=== PATIENT | male | born 1965 | race African-American/Black ===

== ENCOUNTER 2016-11-24 10:29 | Emergency (ER) | payer SELFPAY ==
[~2016-11-24] VITALS: Ht 180.3 cm; Wt 88.5 kg
--- NOTE | 2016-11-24 11:30 | RAD ---
Chest, 2 views, 11/24/2016: History: Cough The heart size and pulmonary vascularity are normal. There is a 2.5 cm calcified nodule in the lingula on the left, well demonstrated on the 03/06/2013 CT study. 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 No pulmonary infiltrate is seen. There is no evidence of pleural fluid. Mild spurring is present in the spine. IMPRESSION: No acute cardiopulmonary abnormality is detected.
--- NOTE | 2016-11-24 11:31 | PHYS DOC ---
Past Medical History Past Medical History: Diabetes-Type II, Hypertension Past Surgical History: No Surgical History Alcohol Use: None Drug Use: None Adult General Chief Complaint Chief Complaint: MULTIPLE COMPLAINTS HPI HPI Patient is a 51 year old male with history of hypertension, diabetes type 2, who presents today with a productive cough with yellow sputum for 3-4 days. Patient is also complaining of bilateral ear pain. Patient denies any fever. He states he has history of granuloma in his lungs. PCP Dr. Goyal Review of Systems Review of Systems Constitutional: Denies fever or chills [] Eyes: Denies change in visual acuity, redness, or eye pain [] HENT: Denies nasal congestion or sore throat [] Respiratory: Denies cough or shortness of breath [] Cardiovascular: No additional information not addressed in HPI [] GI: Denies abdominal pain, nausea, vomiting, bloody stools or diarrhea [] : Denies dysuria or hematuria [] Musculoskeletal: Denies back pain or joint pain [] Integument: Denies rash or skin lesions [] Neurologic: Denies headache, focal weakness or sensory changes [] Endocrine: Denies polyuria or polydipsia [] Allergies Allergies Allergies Coded Allergies Type Severity Reaction Last Updated Verified No Known Drug Allergies 05/25/15 No Physical Exam Physical Exam Constitutional: Well developed, well nourished, no acute distress, non-toxic appearance. [] HENT: Normocephalic, atraumatic, bilateral external ears normal, oropharynx moist, no oral exudates, nose normal. [] Eyes: PERRLA, EOMI, conjunctiva normal, no discharge. [] Neck: Normal range of motion, no tenderness, supple, no stridor. [] Cardiovascular:Heart rate regular rhythm, no murmur [] Lungs & Thorax: Bilateral breath sounds clear to auscultation [] Abdomen: Bowel sounds normal, soft, no tenderness, no masses, no pulsatile masses. [] Skin: Warm, dry, no erythema, no rash. [] Back: No tenderness, no CVA tenderness. [] Extremities: No tenderness, no cyanosis, no clubbing, ROM intact, no edema. [] Neurologic: Alert and oriented X 3, normal motor function, normal sensory function, no focal deficits noted. [] Psychologic: Affect normal, judgement normal, mood normal. [] Current Patient Data Vital Signs Vital Signs Date Time Temp Pulse Resp B/P Pulse Ox O2 Delivery O2 Flow Rate FiO2 11/24/16 10:41 98.0 99 20 99 Room Air 98.0 Lab Values Laboratory Tests Test 11/24/16 11:30 Influenza Type A Antigen Negative (NEGATIVE) Influenza Type B Antigen Negative (NEGATIVE) EKG EKG [] Radiology/Procedures Radiology/Procedures [] Course & Med Decision Making Course & Med Decision Making Pertinent Labs and Imaging studies reviewed. (See chart for details) Patient is in the ED with symptoms consistent of upper respiratory infection including coughing and nasal congestion. Negative influenza A or B, chest x-ray negative for any acute findings. Chest x-ray was noted for granuloma which patient is aware off. Patient was discharged with instructions to follow-up with the PCP, he states he has an appointment tomorrow for lab work. Instructed to take Coricidin BP for the upper respiratory infection. Provided return precautions and discharged in stable condition. Dragon Disclaimer Dragon Disclaimer This electronic medical record was generated, in whole or in part, using a voice recognition dictation system. Departure Departure Impression: Primary Impression: Upper respiratory infection Additional Impressions: Cough Otalgia of both ears Disposition: HOME, SELF-CARE Condition: STABLE Referrals: AAKASH GOYAL MD (PCP) Follow-up with your doctor as soon as possible Patient Instructions: Cough, Adult, [id number], Upper Respiratory Infection, Adult Additional Instructions: You were seen in the ED with symptoms consistent with an upper respiratory infection. Take Coricidin BP as needed. Follow-up with your doctor in the next 7 days. Come back to the ED for any worsening condition. Scripts Acetaminophen/Chlorpheniramine (Coricidin Hbp Cold & Flu Tab)1 Each Tablet1 Each PO Q12HR PRN AD #14 TAB Prov:KATEJEROD FEATHER MAKER 11/24/16 Problem Qualifiers Primary Impression: Upper respiratory infection URI type: unspecified URI Qualified Code: J06.9 - Acute upper respiratory infection, unspecified JEROD LOVE FEATHER MAKER Nov 24, 2016 11:31
[2016-11-24 12:58] LABS: OBC FLU VALID
[2016-11-24] MEDS ORDERED: ACET1TAB29 PO (13:17)
[2016-11-24 13:40] VITALS: BP 151/90
== END 2016-11-24 13:40 | disposition home or self-care (01) ==
LOC: ER 10:29
DX: J06.9 Acute upper respiratory infection, unspecified (principal); I10 Essential (primary) hypertension; E11.9 Type 2 diabetes mellitus without complications; J84.10 Pulmonary fibrosis, unspecified
CPT/HCPCS: 71020; 87804; 99285-25